=== PATIENT | female | born 1965 | race Caucasian/White ===

== ENCOUNTER 2022-02-10 06:43 | Emergency (ER) | payer OTHER, MEDICAID, SELFPAY ==
[2022-02-10 07:01] VITALS: BP 132/76; PULSE 67; RESP 16; TEMP 36.4; O2SAT 98; BMI 23.3
[2022-02-10 07:50] LABS: Hematocrit 42.3 % (36-46); Hemoglobin 14.4 g/dL (12.0-16.0); Mean Corpuscular Hemoglobin 29.4 PG (26-34); Mean Corpuscular Volume 86.4 fL (80-100); Platelet Count 287 X10^3/uL (150-400); Red Blood Cell Count 4.89 X10^6/uL (4.0-5.2); Red Cell Distribution Width 13.2 % (11.6-14.8); White Blood Cell Count 11.5 X10^3/uL (4.5-11.0)
[2022-02-10 07:52] LABS: Add Manual Diff / Slide Review YES
[2022-02-10 07:58] LABS: Acetaminophen < 10 ug/mL (10-30); Alanine Aminotransferase 34 IU/L (<35); Albumin 4.4 g/dL (3.5-5.0); Albumin Globulin Ratio 1.3 (1.0-2.8); Alkaline Phosphatase 83 U/L (38-126); Aspartate Aminotransferase 33 IU/L (14-36); BUN Creatinine Ratio 12.2 (6-22); Bilirubin Total 0.4 mg/dL (0.2-1.3); Blood Urea Nitrogen 9 mg/dL (7-17); Calcium 9.4 mg/dL (8.4-10.2); Carbon Dioxide 26 mmol/L (22-32); Chloride 105 mmol/L (98-107); Estimated Glomerular Filt Rate > 60 mL/min (>60); Ethanol (ETOH) < 10 mg/dL; Globulin 3.5 g/dL (1.7-4.1); Glucose 110 mg/dL (70-100); HEMOLYSIS < 15 (0-50); Potassium 3.7 mmol/L (3.4-5.1); Salicylate < 1.0 mg/dL (<20); Sodium 140 mmol/L (137-145); Total Protein 7.9 g/dL (6.3-8.2)
[2022-02-10 08:14] LABS: Neutrophils Absolute Manual 8740 /uL (3000-5900); RBC Morphology Norm; Total Cells Counted 100
--- NOTE | 2022-02-10 08:18 | ED.PSYCH ---
HPI - Psych <Eugenia Carlson DO - Last Filed: 02/11/22 09:23> General Chief Complaint: Psychiatric Symptoms Stated Complaint: mental health Time Seen by Provider: 02/10/22 07:11 Source: patient and family Mode of arrival: Ambulatory History of Present Illness HPI Narrative: Patient is a 56-year-old female history of bipolar brought in by her neighbors with worsening bipolar symptoms and possible hallucinations. She states that she feels like she is losing control of her life. She just lost her puppy. Sounds like she moved here from [place]. She might be hearing voices and goes in her apartment. She denies any suicidal or homicidal ideations. 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 But now neighbors are concerned that she isn't able to take care of herself. It does not sound like they know her that well but were willing to drive her to the ED for further evaluation. Patient states that she is been taking her medications her doctor and renal continues to prescribe her lithium and risperidone but she is not yet established care here in [facility]. She moved here in 2020. She denies any chest pain. She does have some shortness of breath with exertion but she does not feel like it is too bad. She denies any fever or chills. No significant abdominal pain nausea or vomiting. Patient apparently had multiple names for at least multiple pill bottles with different names. Related Data Home Medications Medication Instructions Recorded Confirmed alprazolam 0.5 mg tablet 0.5 mg PO BEDTIME PRN Insomnia 02/10/22 02/10/22 levothyroxine 25 mcg tablet 25 mcg PO DAILY 02/10/22 02/10/22 lithium carbonate 450 mg 450 mg PO BEDTIME 02/10/22 02/10/22 tablet,extended release propranolol 10 mg tablet 10 mg PO DAILY 02/10/22 02/10/22 risperidone 0.5 mg tablet 0.5 mg PO DAILY 02/10/22 02/10/22 Allergies Allergy/AdvReac Type Severity Reaction Status Date / Time No Known Drug Allergies Allergy Verified 02/10/22 21:14 Review of Systems <DO Johnnie Hill Last Filed: 02/11/22 09:23> Review of Systems Narrative: GENERAL: Denies chills, fatigue, malaise, fever, sweats, travel HEENT: Denies sinus pain, ear pain, sore throat, difficulty swallowing, neck pain RESPIRATORY: See HPI CARDIOVASCULAR: Denies chest pain, palpitations, orthopnea, edema GASTROINTESTINAL: Denies nausea, vomiting, abdominal pain, diarrhea, constipation, melena. : Denies dysuria, frequency, incontinence, hematuria, urinary retention, flank pain. MUSCULOSKELETAL: Denies weakness, joint pain, or bony pain SKIN: No rash, no erythema, no pruritus NEUROLOGIC: Denies weakness, dizziness, headache, numbness, change in speech, confusion PSYCHIATRIC: See HPI 12 point review of systems is negative except for those stated above and HPI Patient History <Eugenia Carlson DO - Last Filed: 02/11/22 09:23> Social History Smoking Status: Former smoker Smoking Status: Former smoker alcohol intake frequency: holidays/special occasions only Exam <Eugenia Carlson DO - Last Filed: 02/11/22 09:23> Initial Vital Signs Initial Vital Signs: Vital Signs Temperature 97.6 F 02/10/22 07:01 Pulse Rate 67 02/10/22 07:01 Respiratory Rate 16 02/10/22 07:01 Blood Pressure 132/76 02/10/22 07:01 Pulse Oximetry 98 02/10/22 07:01 Oxygen Delivery Method 02/10/22 07:01 GENERAL: Pleasant well-groomed 56-year-old female HEENT: Head atraumatic,EOMI, pupils reactive, face symmetric, moist mucous membranes CARDIOVASCULAR: Regular rate and rhythm without murmurs, rubs or gallops. RESPIRATORY: Breath sounds equal bilaterally, no wheezes rales or rhonchi. ABDOMEN: Soft, nontender. Normoactive bowel sounds all 4 quadrants. No guarding or rebound. EXTREMITIES: Normal range of motion, no clubbing or edema. Neurovascularly intact NEUROLOGICAL: Alert and oriented x4.Normal gait and speech. SKIN: Warm, dry, no laceration, no petechiae, no rashes or lesions. <Melani Pressley DO - Last Filed: 02/14/22 07:03> Initial Vital Signs Initial Vital Signs: Vital Signs Temperature 97.6 F 02/10/22 07:01 Pulse Rate 67 02/10/22 07:01 Respiratory Rate 16 02/10/22 07:01 Blood Pressure 132/76 02/10/22 07:01 Pulse Oximetry 98 12/18/22 07:01 Oxygen Delivery Method 02/10/22 07:01 Course <Eugenia Carlson DO - Last Filed: 02/11/22 09:23> Orders Ordered: Discontinued Medications Diphenhydramine HCl (Diphenhydramine 50 Mg/Ml Vial) 50 mg IM NOW ONE Stop: 02/11/22 05:23 Last Admin: 02/11/22 05:29 Dose: 50 mg Documented By: REUBEN Lorazepam (Lorazepam 0.5 Mg Tablet) 1 mg PO NOW ONE Stop: 02/10/22 14:51 Last Admin: 02/10/22 15:01 Dose: 1 mg Documented By: ALE Lorazepam (Lorazepam 2 Mg/Ml Inj) 1 mg IM NOW ONE Stop: 02/11/22 05:23 Last Admin: 02/11/22 05:29 Dose: 1 mg Documented By: REUBEN Olanzapine (Olanzapine Odt 10 Mg Tab) 10 mg PO NOW ONE Stop: 02/10/22 23:33 Last Admin: 02/10/22 23:37 Dose: 10 mg Documented By: STEPHEN Vital Signs Vital signs: Vital Signs - 8 hr 02/11/22 08:22 Pulse Rate 60 Blood Pressure 116/78 Pulse Oximetry 100 Oxygen Delivery Method Room Air <Melani Pressley DO - Last Filed: 02/14/22 07:03> Orders Ordered: Discontinued Medications Diphenhydramine HCl (Diphenhydramine 50 Mg/Ml Vial) 50 mg IM NOW ONE Stop: 02/11/22 05:23 Last Admin: 02/11/22 05:29 Dose: 50 mg Documented By: REUBEN Lorazepam (Lorazepam 0.5 Mg Tablet) 1 mg PO NOW ONE Stop: 02/10/22 14:51 Last Admin: 02/10/22 15:01 Dose: 1 mg Documented By: ALE Lorazepam (Lorazepam 2 Mg/Ml Inj) 1 mg IM NOW ONE Stop: 02/11/22 05:23 Last Admin: 02/11/22 05:29 Dose: 1 mg Documented By: REUBEN Olanzapine (Olanzapine Odt 10 Mg Tab) 10 mg PO NOW ONE Stop: 02/10/22 23:33 Last Admin: 02/10/22 23:37 Dose: 10 mg Documented By: STEPHEN Reevaluation(s) Reevaluation #3: Patient eloped from department. Security walked the area. Staff checked the department and she is not found. PD contacted and are looking for patient. They are reaching out to friends who brought patient. Vital Signs Vital signs: Vital Signs - 8 hr 02/11/22 08:22 Pulse Rate 60 Blood Pressure 116/78 Pulse Oximetry 100 Oxygen Delivery Method Room Air MDM - Psych <Eugenia Carlson, DO - Last Filed: 02/11/22 09:23> Lab Data Result diagrams: 02/10/22 07:30 02/10/22 07:30 Labs: Lab Results 02/10/22 02/10/22 02/10/22 Range/Units 07:28 07:30 07:30 WBC 11.5 H (4.5-11.0) X10^3/uL RBC 4.89 (4.0-5.2) X10^6/uL Hgb 14.4 (12.0-16.0) g/dL Hct 42.3 (36-46) % MCV 86.4 (80-100) fL MCH 29.4 (26-34) PG MCHC 34.0 (30-36) % RDW 13.2 (11.6-14.8) % Plt Count 287 (150-400) X10^3/uL Neut % (Auto) Not Reportable Lymph % (Auto) Not Reportable Castro % (Auto) Not Reportable Eos % (Auto) Not Reportable Baso % (Auto) Not Reportable Lymph # (Auto) Not Reportable Castro # (Auto) Not Reportable Baso # (Auto) Not Reportable Total Counted 100 Seg Neutrophils % 76.0 H (38-70) % Lymphocytes % (Manual) 13.0 L (25-45) % Monocytes % (Manual) 8.0 (2-11) % Eosinophils % (Manual) 3.0 (2-4) % Neutrophils # (Manual) 8740 H (8335-2824) /uL RBC Morphology Norm D-Dimer (<500) ng/ml Sodium 140 (137-145) mmol/L Potassium 3.7 (3.4-5.1) mmol/L Chloride 105 (98-107) mmol/L Carbon Dioxide 26 (22-32) mmol/L BUN 9 (7-17) mg/dL Creatinine 0.74 (0.52-1.04) mg/dL Estimated GFR > 60 (>60) mL/min BUN/Creatinine Ratio 12.2 (6-22) Glucose 110 H (70-100) mg/dL Calcium 9.4 (8.4-10.2) mg/dL Total Bilirubin 0.4 (0.2-1.3) mg/dL AST 33 (14-36) IU/L ALT 34 (<35) IU/L Alkaline Phosphatase 83 (38-126) U/L Total Creatine Kinase (30-135) U/L CK-MB (CK-2) CK-MB (CK-2) Rel Index Troponin I (0.01-0.034) ng/mL Total Protein 7.9 (6.3-8.2) g/dL Albumin 4.4 (3.5-5.0) g/dL Globulin 3.5 (1.7-4.1) g/dL Albumin/Globulin Ratio 1.3 (1.0-2.8) TSH (0.47-4.68) uIU/mL Urine Color Yellow Urine Appearance Clear Urine pH 7.0 (4.5-8.0) Ur Specific [place] <=1.005 (1.000-1.035) Urine Protein Negative (Negative) Urine Glucose (UA) Negative (Negative) g/dL Urine Ketones Negative (NEGATIVE) Urine Occult Blood Negative (Negative) Urine Nitrate Negative (Negative) Urine Bilirubin Negative (NEGATIVE) Urine Urobilinogen 0.2 (0.2) E.U./dL Ur Leukocyte Esterase Negative (NEGATIVE) Urine RBC 0-1/hpf (0-5/HPF) Urine WBC 0-1/hpf (0-5/HPF) Ur Squamous Epith Cells 0-1 /hpf (0-5/HPF) Urine Bacteria Occasional (0-1) (None) Ur Culture Indicated? Cult not indicated Salicylates < 1.0 (<20) mg/dL U Opiates 300ng/mL cut (Negative) Ur Oxycodone Screen (Negative) Urine Methadone Screen (Negative) Acetaminophen < 10 (10-30) ug/mL Ur Barbiturates Screen (Negative) U Tricyclic Antidepress (Negative) Ur Phencyclidine Scrn (Negative) Ur Amphetamines Screen (Negative) U Methamphetamines Scrn (Negative) Ur MDMA Scrn (Ecstasy) (Negative) U Benzodiazepines Scrn (Negative) Rugby (0.6-1.2) mmol/L Urine Cocaine Screen (Negative) U Marijuana (THC) Screen (Negative) Ethyl Alcohol < 10 ( - 10) mg/dL SARS-CoV-2 (PCR) (Negative) 02/10/22 02/10/22 02/10/22 Range/Units 07:30 07:58 08:30 WBC (4.5-11.0) X10^3/uL RBC (4.0-5.2) X10^6/uL Hgb (12.0-16.0) g/dL Hct (36-46) % MCV (80-100) fL MCH (26-34) PG MCHC (30-36) % RDW (11.6-14.8) % Plt Count (150-400) X10^3/uL Neut % (Auto) Lymph % (Auto) Castro % (Auto) Eos % (Auto) Baso % (Auto) Lymph # (Auto) Castro # (Auto) Baso # (Auto) Total Counted Seg Neutrophils % (38-70) % Lymphocytes % (Manual) (25-45) % Monocytes % (Manual) (2-11) % Eosinophils % (Manual) (2-4) % Neutrophils # (Manual) (9815-6715) /uL RBC Morphology D-Dimer (<500) ng/ml Sodium (137-145) mmol/L Potassium (3.4-5.1) mmol/L Chloride (98-107) mmol/L Carbon Dioxide (22-32) mmol/L BUN (7-17) mg/dL Creatinine (0.52-1.04) mg/dL Estimated GFR (>60) mL/min BUN/Creatinine Ratio (6-22) Glucose (70-100) mg/dL Calcium (8.4-10.2) mg/dL Total Bilirubin (0.2-1.3) mg/dL AST (14-36) IU/L ALT (<35) IU/L Alkaline Phosphatase (38-126) U/L Total Creatine Kinase 93 (30-135) U/L CK-MB (CK-2) TNP CK-MB (CK-2) Rel Index TNP Troponin I < 0.012 (0.01-0.034) ng/mL Total Protein (6.3-8.2) g/dL Albumin (3.5-5.0) g/dL Globulin (1.7-4.1) g/dL Albumin/Globulin Ratio (1.0-2.8) TSH 3.31 (0.47-4.68) uIU/mL Urine Color Urine Appearance Urine pH (4.5-8.0) Ur Specific [place] (1.000-1.035) Urine Protein (Negative) Urine Glucose (UA) (Negative) g/dL Urine Ketones (NEGATIVE) Urine Occult Blood (Negative) Urine Nitrate (Negative) Urine Bilirubin (NEGATIVE) Urine Urobilinogen (0.2) E.U./dL Ur Leukocyte Esterase (NEGATIVE) Urine RBC (0-5/HPF) Urine WBC (0-5/HPF) Ur Squamous Epith Cells (0-5/HPF) Urine Bacteria (None) Ur Culture Indicated? Salicylates (<20) mg/dL U Opiates 300ng/mL cut Negative (Negative) Ur Oxycodone Screen Negative (Negative) Urine Methadone Screen Negative (Negative) Acetaminophen (10-30) ug/mL Ur Barbiturates Screen Negative (Negative) U Tricyclic Antidepress Negative (Negative) Ur Phencyclidine Scrn Negative (Negative) Ur Amphetamines Screen Negative (Negative) U Methamphetamines Scrn Negative (Negative) Ur MDMA Scrn (Ecstasy) Negative (Negative) U Benzodiazepines Scrn Negative (Negative) Rugby (0.6-1.2) mmol/L Urine Cocaine Screen Negative (Negative) U Marijuana (THC) Screen Negative (Negative) Ethyl Alcohol ( - 10) mg/dL SARS-CoV-2 (PCR) (Negative) 02/10/22 02/10/22 02/10/22 Range/Units 08:30 08:30 13:55 WBC (4.5-11.0) X10^3/uL RBC (4.0-5.2) X10^6/uL Hgb (12.0-16.0) g/dL Hct (36-46) % MCV (80-100) fL MCH (26-34) PG MCHC (30-36) % RDW (11.6-14.8) % Plt Count (150-400) X10^3/uL Neut % (Auto) Lymph % (Auto) Castro % (Auto) Eos % (Auto) Baso % (Auto) Lymph # (Auto) Castro # (Auto) Baso # (Auto) Total Counted Seg Neutrophils % (38-70) % Lymphocytes % (Manual) (25-45) % Monocytes % (Manual) (2-11) % Eosinophils % (Manual) (2-4) % Neutrophils # (Manual) (8940-0250) /uL RBC Morphology D-Dimer 283 (<500) ng/ml Sodium (137-145) mmol/L Potassium (3.4-5.1) mmol/L Chloride (98-107) mmol/L Carbon Dioxide (22-32) mmol/L BUN (7-17) mg/dL Creatinine (0.52-1.04) mg/dL Estimated GFR (>60) mL/min BUN/Creatinine Ratio (6-22) Glucose (70-100) mg/dL Calcium (8.4-10.2) mg/dL Total Bilirubin (0.2-1.3) mg/dL AST (14-36) IU/L ALT (<35) IU/L Alkaline Phosphatase (38-126) U/L Total Creatine Kinase (30-135) U/L CK-MB (CK-2) CK-MB (CK-2) Rel Index Troponin I (0.01-0.034) ng/mL Total Protein (6.3-8.2) g/dL Albumin (3.5-5.0) g/dL Globulin (1.7-4.1) g/dL Albumin/Globulin Ratio (1.0-2.8) TSH (0.47-4.68) uIU/mL Urine Color Urine Appearance Urine pH (4.5-8.0) Ur Specific [place] (1.000-1.035) Urine Protein (Negative) Urine Glucose (UA) (Negative) g/dL Urine Ketones (NEGATIVE) Urine Occult Blood (Negative) Urine Nitrate (Negative) Urine Bilirubin (NEGATIVE) Urine Urobilinogen (0.2) E.U./dL Ur Leukocyte Esterase (NEGATIVE) Urine RBC (0-5/HPF) Urine WBC (0-5/HPF) Ur Squamous Epith Cells (0-5/HPF) Urine Bacteria (None) Ur Culture Indicated? Salicylates (<20) mg/dL U Opiates 300ng/mL cut (Negative) Ur Oxycodone Screen (Negative) Urine Methadone Screen (Negative) Acetaminophen (10-30) ug/mL Ur Barbiturates Screen (Negative) U Tricyclic Antidepress (Negative) Ur Phencyclidine Scrn (Negative) Ur Amphetamines Screen (Negative) U Methamphetamines Scrn (Negative) Ur MDMA Scrn (Ecstasy) (Negative) U Benzodiazepines Scrn (Negative) Rugby 0.8 (0.6-1.2) mmol/L Urine Cocaine Screen (Negative) U Marijuana (THC) Screen (Negative) Ethyl Alcohol ( - 10) mg/dL SARS-CoV-2 (PCR) Negative (Negative) 02/11/22 Range/Units 01:24 WBC (4.5-11.0) X10^3/uL RBC (4.0-5.2) X10^6/uL Hgb (12.0-16.0) g/dL Hct (36-46) % MCV (80-100) fL MCH (26-34) PG MCHC (30-36) % RDW (11.6-14.8) % Plt Count (150-400) X10^3/uL Neut % (Auto) Lymph % (Auto) Castro % (Auto) Eos % (Auto) Baso % (Auto) Lymph # (Auto) Castro # (Auto) Baso # (Auto) Total Counted Seg Neutrophils % (38-70) % Lymphocytes % (Manual) (25-45) % Monocytes % (Manual) (2-11) % Eosinophils % (Manual) (2-4) % Neutrophils # (Manual) (7629-9496) /uL RBC Morphology D-Dimer (<500) ng/ml Sodium (137-145) mmol/L Potassium (3.4-5.1) mmol/L Chloride (98-107) mmol/L Carbon Dioxide (22-32) mmol/L BUN (7-17) mg/dL Creatinine (0.52-1.04) mg/dL Estimated GFR (>60) mL/min BUN/Creatinine Ratio (6-22) Glucose (70-100) mg/dL Calcium (8.4-10.2) mg/dL Total Bilirubin (0.2-1.3) mg/dL AST (14-36) IU/L ALT (<35) IU/L Alkaline Phosphatase (38-126) U/L Total Creatine Kinase (30-135) U/L CK-MB (CK-2) CK-MB (CK-2) Rel Index Troponin I (0.01-0.034) ng/mL Total Protein (6.3-8.2) g/dL Albumin (3.5-5.0) g/dL Globulin (1.7-4.1) g/dL Albumin/Globulin Ratio (1.0-2.8) TSH (0.47-4.68) uIU/mL Urine Color Urine Appearance Urine pH (4.5-8.0) Ur Specific [place] (1.000-1.035) Urine Protein (Negative) Urine Glucose (UA) (Negative) g/dL Urine Ketones (NEGATIVE) Urine Occult Blood (Negative) Urine Nitrate (Negative) Urine Bilirubin (NEGATIVE) Urine Urobilinogen (0.2) E.U./dL Ur Leukocyte Esterase (NEGATIVE) Urine RBC (0-5/HPF) Urine WBC (0-5/HPF) Ur Squamous Epith Cells (0-5/HPF) Urine Bacteria (None) Ur Culture Indicated? Salicylates (<20) mg/dL U Opiates 300ng/mL cut (Negative) Ur Oxycodone Screen (Negative) Urine Methadone Screen (Negative) Acetaminophen (10-30) ug/mL Ur Barbiturates Screen (Negative) U Tricyclic Antidepress (Negative) Ur Phencyclidine Scrn (Negative) Ur Amphetamines Screen (Negative) U Methamphetamines Scrn (Negative) Ur MDMA Scrn (Ecstasy) (Negative) U Benzodiazepines Scrn (Negative) Rugby (0.6-1.2) mmol/L Urine Cocaine Screen (Negative) U Marijuana (THC) Screen (Negative) Ethyl Alcohol < 10 ( - 10) mg/dL SARS-CoV-2 (PCR) (Negative) ECG Data Interpretation: Normal sinus rhythm rate 63 NC interval 132 QRS 70 QTC 474 significant T-wave inversion noted in inferior leads 2 [address] elevations no Q-waves no priors to compare T-wave inversions also noted in V3. MDM Narrative Medical decision making narrative: Patient is found have multiple names she does not always make sense but seems well put together. She is given some Ativan she is getting a little bit anxious. She is been evaluated by social work. Necessarily considered gravely disabled but she is voluntarily willing to go to mental health facility. She is not suicidal or homicidal. Patient's EKG does have T-wave inversions and ST depressions but she is absolutely no symptoms no chest pain her troponin is negative. She denies any cardiac history. At this time likely an incidental finding. Patient signed out to Dr. Pressley awaiting placement. Social work has seen patient talking with D[facility] about possible involuntary placement. Patient has been in another room requesting to help our other patients throughout her stay. I spoke with JAMES Delgado, patient has been officially detained and has been found bed is to transfer in the morning around 0900. Patient has to be continually redirected. She has not been violent or aggressive during her staty. Patient had eloped. [place] [facility] [place] and had management to obtain money in the interim. Patient well-appearing on exam, ambulating. Will repeat UDS and ETOH. Patient has been redirectable but requiring constant redirection. She clearly does not understand her current situation to does not understand why it was not safe to leave the department without her coat without her phone while it is snowing outdoors in the middle of the night and she has no way to return home which is on not on [facility]. Patient signed out to Dr. Carlson while awaiting transport to psychatric facility. Patient signed out to me by Dr. Pressley. She left by ambulance to psych facility without any more problems <Melani Pressley, DO - Last Filed: 02/14/22 07:03> Lab Data Labs: Lab Results 02/10/22 02/10/22 02/10/22 Range/Units 07:28 07:30 07:30 WBC 11.5 H (4.5-11.0) X10^3/uL RBC 4.89 (4.0-5.2) X10^6/uL Hgb 14.4 (12.0-16.0) g/dL Hct 42.3 (36-46) % MCV 86.4 (80-100) fL MCH 29.4 (26-34) PG MCHC 34.0 (30-36) % RDW 13.2 (11.6-14.8) % Plt Count 287 (150-400) X10^3/uL Neut % (Auto) Not Reportable Lymph % (Auto) Not Reportable Castro % (Auto) Not Reportable Eos % (Auto) Not Reportable Baso % (Auto) Not Reportable Lymph # (Auto) Not Reportable Castro # (Auto) Not Reportable Baso # (Auto) Not Reportable Total Counted 100 Seg Neutrophils % 76.0 H (38-70) % Lymphocytes % (Manual) 13.0 L (25-45) % Monocytes % (Manual) 8.0 (2-11) % Eosinophils % (Manual) 3.0 (2-4) % Neutrophils # (Manual) 8740 H (6827-1978) /uL RBC Morphology Norm D-Dimer (<500) ng/ml Sodium 140 (137-145) mmol/L Potassium 3.7 (3.4-5.1) mmol/L Chloride 105 (98-107) mmol/L Carbon Dioxide 26 (22-32) mmol/L BUN 9 (7-17) mg/dL Creatinine 0.74 (0.52-1.04) mg/dL Estimated GFR > 60 (>60) mL/min BUN/Creatinine Ratio 12.2 (6-22) Glucose 110 H (70-100) mg/dL Calcium 9.4 (8.4-10.2) mg/dL Total Bilirubin 0.4 (0.2-1.3) mg/dL AST 33 (14-36) IU/L ALT 34 (<35) IU/L Alkaline Phosphatase 83 (38-126) U/L Total Creatine Kinase (30-135) U/L CK-MB (CK-2) CK-MB (CK-2) Rel Index Troponin I (0.01-0.034) ng/mL Total Protein 7.9 (6.3-8.2) g/dL Albumin 4.4 (3.5-5.0) g/dL Globulin 3.5 (1.7-4.1) g/dL Albumin/Globulin Ratio 1.3 (1.0-2.8) TSH (0.47-4.68) uIU/mL Urine Color Yellow Urine Appearance Clear Urine pH 7.0 (4.5-8.0) Ur Specific [place] <=1.005 (1.000-1.035) Urine Protein Negative (Negative) Urine Glucose (UA) Negative (Negative) g/dL Urine Ketones Negative (NEGATIVE) Urine Occult Blood Negative (Negative) Urine Nitrate Negative (Negative) Urine Bilirubin Negative (NEGATIVE) Urine Urobilinogen 0.2 (0.2) E.U./dL Ur Leukocyte Esterase Negative (NEGATIVE) Urine RBC 0-1/hpf (0-5/HPF) Urine WBC 0-1/hpf (0-5/HPF) Ur Squamous Epith Cells 0-1 /hpf (0-5/HPF) Urine Bacteria Occasional (0-1) (None) Ur Culture Indicated? Cult not indicated Salicylates < 1.0 (<20) mg/dL U Opiates 300ng/mL cut (Negative) Ur Oxycodone Screen (Negative) Urine Methadone Screen (Negative) Acetaminophen < 10 (10-30) ug/mL Ur Barbiturates Screen (Negative) U Tricyclic Antidepress (Negative) Ur Phencyclidine Scrn (Negative) Ur Amphetamines Screen (Negative) U Methamphetamines Scrn (Negative) Ur MDMA Scrn (Ecstasy) (Negative) U Benzodiazepines Scrn (Negative) Rugby (0.6-1.2) mmol/L Urine Cocaine Screen (Negative) U Marijuana (THC) Screen (Negative) Ethyl Alcohol < 10 ( - 10) mg/dL SARS-CoV-2 (PCR) (Negative) 02/10/22 02/10/22 02/10/22 Range/Units 07:30 07:58 08:30 WBC (4.5-11.0) X10^3/uL RBC (4.0-5.2) X10^6/uL Hgb (12.0-16.0) g/dL Hct (36-46) % MCV (80-100) fL MCH (26-34) PG MCHC (30-36) % RDW (11.6-14.8) % Plt Count (150-400) X10^3/uL Neut % (Auto) Lymph % (Auto) Castro % (Auto) Eos % (Auto) Baso % (Auto) Lymph # (Auto) [place] # (Auto) Baso # (Auto) Total Counted Seg Neutrophils % (38-70) % Lymphocytes % (Manual) (25-45) % Monocytes % (Manual) (2-11) % Eosinophils % (Manual) (2-4) % Neutrophils # (Manual) (3216-9999) /uL RBC Morphology D-Dimer (<500) ng/ml Sodium (137-145) mmol/L Potassium (3.4-5.1) mmol/L Chloride (98-107) mmol/L Carbon Dioxide (22-32) mmol/L BUN (7-17) mg/dL Creatinine (0.52-1.04) mg/dL Estimated GFR (>60) mL/min BUN/Creatinine Ratio (6-22) Glucose (70-100) mg/dL Calcium (8.4-10.2) mg/dL Total Bilirubin (0.2-1.3) mg/dL AST (14-36) IU/L ALT (<35) IU/L Alkaline Phosphatase (38-126) U/L Total Creatine Kinase 93 (30-135) U/L CK-MB (CK-2) TNP CK-MB (CK-2) Rel Index TNP Troponin I < 0.012 (0.01-0.034) ng/mL Total Protein (6.3-8.2) g/dL Albumin (3.5-5.0) g/dL Globulin (1.7-4.1) g/dL Albumin/Globulin Ratio (1.0-2.8) TSH 3.31 (0.47-4.68) uIU/mL Urine Color Urine Appearance Urine pH (4.5-8.0) Ur Specific [place] (1.000-1.035) Urine Protein (Negative) Urine Glucose (UA) (Negative) g/dL Urine Ketones (NEGATIVE) Urine Occult Blood (Negative) Urine Nitrate (Negative) Urine Bilirubin (NEGATIVE) Urine Urobilinogen (0.2) E.U./dL Ur Leukocyte Esterase (NEGATIVE) Urine RBC (0-5/HPF) Urine WBC (0-5/HPF) Ur Squamous Epith Cells (0-5/HPF) Urine Bacteria (None) Ur Culture Indicated? Salicylates (<20) mg/dL U Opiates 300ng/mL cut Negative (Negative) Ur Oxycodone Screen Negative (Negative) Urine Methadone Screen Negative (Negative) Acetaminophen (10-30) ug/mL Ur Barbiturates Screen Negative (Negative) U Tricyclic Antidepress Negative (Negative) Ur Phencyclidine Scrn Negative (Negative) Ur Amphetamines Screen Negative (Negative) U Methamphetamines Scrn Negative (Negative) Ur MDMA Scrn (Ecstasy) Negative (Negative) U Benzodiazepines Scrn Negative (Negative) Rugby (0.6-1.2) mmol/L Urine Cocaine Screen Negative (Negative) U Marijuana (THC) Screen Negative (Negative) Ethyl Alcohol ( - 10) mg/dL SARS-CoV-2 (PCR) (Negative) 02/10/22 02/10/22 02/10/22 Range/Units 08:30 08:30 13:55 WBC (4.5-11.0) X10^3/uL RBC (4.0-5.2) X10^6/uL Hgb (12.0-16.0) g/dL Hct (36-46) % MCV (80-100) fL MCH (26-34) PG MCHC (30-36) % RDW (11.6-14.8) % Plt Count (150-400) X10^3/uL Neut % (Auto) Lymph % (Auto) [place] % (Auto) Eos % (Auto) Baso % (Auto) Lymph # (Auto) [place] # (Auto) Baso # (Auto) Total Counted Seg Neutrophils % (38-70) % Lymphocytes % (Manual) (25-45) % Monocytes % (Manual) (2-11) % Eosinophils % (Manual) (2-4) % Neutrophils # (Manual) (7602-1900) /uL RBC Morphology D-Dimer 283 (<500) ng/ml Sodium (137-145) mmol/L Potassium (3.4-5.1) mmol/L Chloride (98-107) mmol/L Carbon Dioxide (22-32) mmol/L BUN (7-17) mg/dL Creatinine (0.52-1.04) mg/dL Estimated GFR (>60) mL/min BUN/Creatinine Ratio (6-22) Glucose (70-100) mg/dL Calcium (8.4-10.2) mg/dL Total Bilirubin (0.2-1.3) mg/dL AST (14-36) IU/L ALT (<35) IU/L Alkaline Phosphatase (38-126) U/L Total Creatine Kinase (30-135) U/L CK-MB (CK-2) CK-MB (CK-2) Rel Index Troponin I (0.01-0.034) ng/mL Total Protein (6.3-8.2) g/dL Albumin (3.5-5.0) g/dL Globulin (1.7-4.1) g/dL Albumin/Globulin Ratio (1.0-2.8) TSH (0.47-4.68) uIU/mL Urine Color Urine Appearance Urine pH (4.5-8.0) Ur Specific [place] (1.000-1.035) Urine Protein (Negative) Urine Glucose (UA) (Negative) g/dL Urine Ketones (NEGATIVE) Urine Occult Blood (Negative) Urine Nitrate (Negative) Urine Bilirubin (NEGATIVE) Urine Urobilinogen (0.2) E.U./dL Ur Leukocyte Esterase (NEGATIVE) Urine RBC (0-5/HPF) Urine WBC (0-5/HPF) Ur Squamous Epith Cells (0-5/HPF) Urine Bacteria (None) Ur Culture Indicated? Salicylates (<20) mg/dL U Opiates 300ng/mL cut (Negative) Ur Oxycodone Screen (Negative) Urine Methadone Screen (Negative) Acetaminophen (10-30) ug/mL Ur Barbiturates Screen (Negative) U Tricyclic Antidepress (Negative) Ur Phencyclidine Scrn (Negative) Ur Amphetamines Screen (Negative) U Methamphetamines Scrn (Negative) Ur MDMA Scrn (Ecstasy) (Negative) U Benzodiazepines Scrn (Negative) Rugby 0.8 (0.6-1.2) mmol/L Urine Cocaine Screen (Negative) U Marijuana (THC) Screen (Negative) Ethyl Alcohol ( - 10) mg/dL SARS-CoV-2 (PCR) Negative (Negative) 02/11/22 Range/Units 01:24 WBC (4.5-11.0) X10^3/uL RBC (4.0-5.2) X10^6/uL Hgb (12.0-16.0) g/dL Hct (36-46) % MCV (80-100) fL MCH (26-34) PG MCHC (30-36) % RDW (11.6-14.8) % Plt Count (150-400) X10^3/uL Neut % (Auto) Lymph % (Auto) Castro % (Auto) Eos % (Auto) Baso % (Auto) Lymph # (Auto) Castro # (Auto) Baso # (Auto) Total Counted Seg Neutrophils % (38-70) % Lymphocytes % (Manual) (25-45) % Monocytes % (Manual) (2-11) % Eosinophils % (Manual) (2-4) % Neutrophils # (Manual) (1110-2082) /uL RBC Morphology D-Dimer (<500) ng/ml Sodium (137-145) mmol/L Potassium (3.4-5.1) mmol/L Chloride (98-107) mmol/L Carbon Dioxide (22-32) mmol/L BUN (7-17) mg/dL Creatinine (0.52-1.04) mg/dL Estimated GFR (>60) mL/min BUN/Creatinine Ratio (6-22) Glucose (70-100) mg/dL Calcium (8.4-10.2) mg/dL Total Bilirubin (0.2-1.3) mg/dL AST (14-36) IU/L ALT (<35) IU/L Alkaline Phosphatase (38-126) U/L Total Creatine Kinase (30-135) U/L CK-MB (CK-2) CK-MB (CK-2) Rel Index Troponin I (0.01-0.034) ng/mL Total Protein (6.3-8.2) g/dL Albumin (3.5-5.0) g/dL Globulin (1.7-4.1) g/dL Albumin/Globulin Ratio (1.0-2.8) TSH (0.47-4.68) uIU/mL Urine Color Urine Appearance Urine pH (4.5-8.0) Ur Specific [place] (1.000-1.035) Urine Protein (Negative) Urine Glucose (UA) (Negative) g/dL Urine Ketones (NEGATIVE) Urine Occult Blood (Negative) Urine Nitrate (Negative) Urine Bilirubin (NEGATIVE) Urine Urobilinogen (0.2) E.U./dL Ur Leukocyte Esterase (NEGATIVE) Urine RBC (0-5/HPF) Urine WBC (0-5/HPF) Ur Squamous Epith Cells (0-5/HPF) Urine Bacteria (None) Ur Culture Indicated? Salicylates (<20) mg/dL U Opiates 300ng/mL cut (Negative) Ur Oxycodone Screen (Negative) Urine Methadone Screen (Negative) Acetaminophen (10-30) ug/mL Ur Barbiturates Screen (Negative) U Tricyclic Antidepress (Negative) Ur Phencyclidine Scrn (Negative) Ur Amphetamines Screen (Negative) U Methamphetamines Scrn (Negative) Ur MDMA Scrn (Ecstasy) (Negative) U Benzodiazepines Scrn (Negative) Rugby (0.6-1.2) mmol/L Urine Cocaine Screen (Negative) U Marijuana (THC) Screen (Negative) Ethyl Alcohol < 10 ( - 10) mg/dL SARS-CoV-2 (PCR) (Negative) MDM Narrative Medical decision making narrative: Patient is found have multiple names she does not always make sense but seems well put together. She is given some Ativan she is getting a little bit anxious. She is been evaluated by social work. Necessarily considered gravely disabled but she is voluntarily willing to go to mental health facility. She is not suicidal or homicidal. Patient's EKG does have T-wave inversions and ST depressions but she is absolutely no symptoms no chest pain her troponin is negative. She denies any cardiac history. At this time likely an incidental finding. Patient signed out to Dr. Pressley awaiting placement. Social work has seen patient talking with DCR about possible involuntary placement. Patient has been in another room requesting to help our other patients throughout her stay. I spoke with JAMES Delgado, patient has been officially detained and has been found bed is to transfer in the morning around 0900. Patient has to be continually redirected. She has not been violent or aggressive during her staty. Patient had eloped. Found by PD close to the local [facility] at least 1/2 mile away and had management to obtain money in the interim. Patient well-appearing on exam, ambulating. Will repeat UDS and ETOH. Patient has been redirectable but requiring constant redirection. She clearly does not understand her current situation to does not understand why it was not safe to leave the department without her coat without her phone while it is snowing outdoors in the middle of the night and she has no way to return home which is on not on [facility]. Patient signed out to Dr. Carlson while awaiting transport to psychatric facility. Discharge Plan Departure Patient Disposition: Xfer Psychiatric Hosp Clinical Impression: Bipolar disorder Prescriptions: No Action alprazolam 0.5 mg Tablet 0.5 mg PO BEDTIME PRN (Reason: Insomnia) levothyroxine 25 mcg Tablet 25 mcg PO DAILY lithium carbonate 450 mg Tablet Extended Release 450 mg PO BEDTIME propranolol 10 mg Tablet 10 mg PO DAILY risperidone 0.5 mg Tablet 0.5 mg PO DAILY
--- NOTE | 2022-02-10 08:45 | PC.NURSE ---
pt states she has 3 legal names. Amalia Granados Amalia Estevez ( name) neighbor, Vidal. [phone]. called and read off medication bottles with both of the above names. pt reports that she was at [facility] for 6 weeks in [place], [place] for suicidal attempt. medications were filled in [facility] and [place]
[2022-02-10 08:49] LABS: TSH w/ Reflex to FT4 3.31 uIU/mL (0.47-4.68)
[2022-02-10 08:57] LABS: Lithium 0.8 mmol/L (0.6-1.2)
[2022-02-10 08:59] LABS: D Dimer 283 ng/ml (<500)
[2022-02-10 09:00] LABS: Creatine Kinase 93 U/L (30-135)
[2022-02-10 09:13] LABS: Troponin I < 0.012 ng/mL (0.01-0.034)
--- NOTE | 2022-02-10 09:17 | PC.NURSE ---
patient's friend, Sera Will,
[2022-02-10 09:43] LABS: Appearance Urine UA CLEAR; Bilirubin Urine UA NEGATIVE (NEGATIVE); Color Urine UA YELLOW; Glucose Urine UA NEGATIVE (Negative); Ketones Urine UA NEGATIVE (NEGATIVE); Leukocyte Esterase Urine UA NEGATIVE (NEGATIVE); Nitrite Urine UA NEGATIVE (Negative); Occult Blood Urine UA NEGATIVE (Negative); Protein Urine UA NEGATIVE (Negative); Specific Gravity Urine UA <=1.005 (1.000-1.035); Urobilinogen Urine UA 0.2 E.U./dL (0.2)
[2022-02-10 09:47] LABS: UR Morphine/Opiate cutoff 300 Negative (Negative); Ur Creatinine Normal (Normal); Ur Specific Gravity Normal (Normal); Urine Amphetamines Negative (Negative); Urine Barbiturates Negative (Negative); Urine Benzodiazepines Negative (Negative); Urine Cocaine Negative (Negative); Urine MDMA Negative (Negative); Urine Methadone Negative (Negative); Urine Methamphetamines Negative (Negative); Urine Oxycodone Negative (Negative); Urine Phencyclidine Negative (Negative); Urine Tetrahydrocannabinol Negative (Negative); Urine Tricyclic Antidepressant Negative (Negative); Urine pH Normal (Normal)
[2022-02-10 10:02] LABS: Bacteria Urine Occasional (0-1); Culture Indicated Urine Cult Not Indicated; RBC Urine 0-1/HPF (0-5/HPF); Squamous Epithelial Cell Urine 0-1 /HPF (0-5/HPF); WBC Urine 0-1/HPF (0-5/HPF)
[2022-02-10 11:54] VITALS: PULSE 80; O2SAT 98
[2022-02-10 12:02] VITALS: BP 155/83; PULSE 65; O2SAT 99
--- NOTE | 2022-02-10 12:47 | CM.SWNOTE ---
SECTION SUPERVISOR - Vending Stand Supervisor Assessment SECTION SUPERVISOR - Vending Stand Supervisor Assessment Start: 02/10/22 12:35 Freq: Status: Active Protocol: Document 02/10/22 12:35 TM (Rec: 02/10/22 12:47 TM [id number]) SECTION SUPERVISOR/Vending Stand Supervisor Assessment Time Spent with Patient Start date 02/10/22 Visit Start Time 12:10 End date 02/10/22 Visit End Time 12:35 Mental Health Screening Include Onset, Duration, Intensity Presenting Problem Pt brought in by her neighbors for worsening bipolar symptoms. Pt states, I am having a little trouble making sense of things. Pt reports visual halluncinations and disorganized thought. Pt also describes feeling outside of her body watching her actions. Precipitating Event(s) Pt reports social isolation and feeling like people don't understand her. Pt reports that she doesn't understand jokes and doesn't make connections. Pt feeling sad that she is not home for [employer]. Pt reports moving to [place] from [place] in October of 2020. Pt does not have any family in the area. Current Behavioral Health Provider(s) Pt does not have current Include Facility, Provider, Ph. # providers in [place]. Pt's provider in [place] prescribes medication . Information for this provider unavailable. Psych. Hx Mental Health and Chemical Pt has diagnosis of bipolar Dependency disorder. Family Hx of Behavioral Abuse none. Psychiatric Hospitalizations (date(s)/ Pt reports that she was location) hospitalized at [facility] in [place], [place] for 6 months about 8 years ago. Psychosocial information & Support supportive neighborJan. 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 Legal Concerns Legal Matters - Outstanding Issues denies. Mental Status Orientation (Person/Place/Time) Pt A&Ox4 Stated Mood My mood is currently a 5-8. Affect (Congruent with Mood?) Broad, congruent with mood. Thought Content - Specify/Describe Pt endorsing visual Obsessions, Delusions, Hallucinations halluncinations. Pt reports that there are ghosts in her home and while they don't necessarily talk to her, she feels intuitively that they are expressing things to her. She says this is why she dropped her puppy off on her neighbor's front porch in the cold the other day. During interview, pt stood up and asked if something was going on outside in the ED. Pt reports that she thought that she saw jazmin coming to save her. Thought Processes (Glfjppr-Pbqfqcbw-Vrhj Disorganized thought. Somewhat Ygpfnffg-Oiyatkbj-Qxhkyclzat- tangential at times. Jntgyronmkvsji-Akpvddm-Uyhxkzkmkwhj- Thought Blocking) Speech (Epgaec-Yffx-Aukrgrv-Rapid-Soft- Normal. Loud-Pressured) Motor (Nznypx-Vmwanvagh-Asfv-Other) Normal. Insight (Exow-Blqs-Uxcs/Limited) Fair. Judgement (Cfwf-Umfa-Zjmy/Limited) Fair. Impulse Control (Adequate-Impaired) not tested. Memory (Idoqisvqn-Drwoxx-Svfqln, intact. Impaired-Intact) Concentration (Intact-Impaired) intact. Attention (Intact-Impaired) intact. Behavior (Appropriate-Inappropriate) appropriate. Risk Assessment Suicidal Ideation (Plan) No Homicidal Ideation (Plan) No Comment Pt reports that she is not currently suicidal but makes vague statements that indicate some suicidality. Pt reports I'm helpless and I don't have anything to able to kill myself. I worry that I am going to get something in here that is going to kill me. Intervention Intervention SW met with pt at bedside and introduced self and role. Pt reports that she does not feel safe and that she is paranoid and confused. Pt reports that she is only sleeping 2-6 hours every night. When asked if she felt safe to discharge home pt stated, There might be something or somebody in the house that I'm running away from. Pt is agreeable to voluntary psychiatric hospitalization for stabilization. Plan RA Plan SW will call local hospitals to find voluntary bed for patient. RITA Sheriff
--- NOTE | 2022-02-10 13:22 | CM.SWNOTE ---
Addendum entered by RITA Sheriff 02/10/22 19:52: RANJEET received call from DCR Danny . SW provided history to Danny and set pt up on Zoom video call. RANJEET faxed DCR over. Following call, RANJEET called Danny who believe that pt meets criteria and will try to find placement for pt. Plan: DCR will start process of finding [facility]REST bed for patient in community. RITA Sheriff Addendum entered by RITA Sheriff 02/10/22 18:15: RANJEET received call from mine boss Jen at [facility] who requested a phone call with pt to screen. Pt screened with Jen and then passed phone over to RANJEET. Jen reports that pt is reporting that she is afraid of the hospital and wants to discharge. Jen reports that pt is not good david voluntary due to these comments. RANJEET discussed with ED Provider, who met with pt and determined that pt meets criteria for grave disability. RANJEET called [facility] and made a referral for DCR Evaluation. Addendum entered by RITA Sheriff 02/10/22 15:51: RANJEET called [facility] and was informed that they have available beds but do not accept [place] [employer]. RANJEET called [facility] and confirmed that they received packet. Vinnie requested an EKG and negative covid test. RANJEET faxed requested documents. RITA Sheriff Original Note: ED SW Note SW working on voluntary inpatient psychiatric hospitalization for pt. RANJEET called [facility] and left a voicemail on their intake line. RANJEET called [facility] and they do not have any available beds at this time. RANJEET called [facility] and they do not have any available beds at this time. RANJEET called [facility] in [place] and they do not have any available beds. SW called [facility] and they do not have available beds at any of their facilities. RANJEET called [facility] and there are no available beds. RANJEET called [facility] and was instructed to call back at 3pm to check on discharges. RANJEET called [facility] and there are no available beds. RANJEET called [facility] and there was no answer. RANJEET called [facility] and they reported that they do have availability. RANJEET faxed referral to [phone]. Plan: RANJEET will follow up with Nieves on referral. RITA Sheriff
[2022-02-10 14:16] LABS: COVID19 -Nasal RAPID Negative (Negative)
[2022-02-10] MEDS: LORazepam 0.5 MG TABLET 1 MG PO (15:01)
--- NOTE | 2022-02-10 17:02 | PC.NURSE ---
Pt coming out of room periodically concerned for other patients on the unit. Pt re-directable and compliant with going back to room. Pt asked RN if this hospital does transfusions and that she thinks her energy could help other patients here Pt then asking about needing to get a bag from her friend so that she could get what she needed to track her puppy. RN continuing to re-orient pt and explain to pt the plan of care. Pt has not ate any meals this shift. Encouraging PO intake. case management social worker currently at bedside with pt
[2022-02-10 18:42] VITALS: PULSE 90; O2SAT 98
[2022-02-10 19:06] VITALS: BP 142/88; PULSE 87; O2SAT 96
--- NOTE | 2022-02-10 19:20 | PC.NURSE ---
Report received - assumed care of pt at this time - wandering around the room - awaiting placement - no needs voiced at this time
--- NOTE | 2022-02-10 19:45 | PC.NURSE ---
tie up worker at bedside - spoke with DCR
--- NOTE | 2022-02-10 20:45 | PC.NURSE ---
No changes in pt status at this time
--- NOTE | 2022-02-10 21:11 | PC.NURSE ---
[facility] called asking additional information on patient. told them no past medical history besides thyroid and bipolar.
--- NOTE | 2022-02-10 21:50 | PC.NURSE ---
XR at bedside
--- NOTE | 2022-02-10 22:00 | PC.NURSE ---
No changes at this time
--- NOTE | 2022-02-10 22:15 | PC.NURSE ---
To CT via stretcher with tech
--- NOTE | 2022-02-10 22:30 | PC.NURSE ---
Returns to the ER from radiology via stretcher with tech
--- NOTE | 2022-02-10 23:30 | PC.NURSE ---
The patient wanders around the room - unsettled - opens the door to the room and asks to leave - explained that she is going to a new center in the morning - verbalizes understanding but becomes anxious and tries to go in other patients rooms stating that they need help - explained that the patient's are all being cared for and that the patient does not need to worry about them - states that she needs to help them - told that she can send them good thoughts or pray for them - the patient states that's the dumbest thing I have heard - explained that the patient is not to go into other patient's rooms - she states well the law is dumb - asked if there is anything the patient needs at this time - she denied needs - given a puzzle - has coloring books and word searches to use at bedside
[2022-02-10] MEDS: OLANZapine ODT 10 MG TAB PO (23:37)
--- NOTE | 2022-02-10 23:50 | PC.NURSE ---
In another patient's room doing care - when came out of the room the patient was not in her room - security and police notified - search of hospital and grounds performed
--- NOTE | 2022-02-11 | PC.NURSE ---
Addendum entered by Dhara Bailey R.N. 02/11/22 01:04: [employer] was able to locate patient and bring her back to ED. Provider aware. Original Note: Patient was last visualized by this RN at 2337 when given dose of Zyprexa for restlessness. Educated patient that she needed to stay in the ED and her desires to leave were not safe. This RN went back to triage and came back and patient had eloped within 5 minutes of last visualization. Notified provider, security, coordinator and called 911 to notify them of the elopement with medication in patient's system who is also FORREST. At this time awaiting location of patient either in the hospital despite security and multiple staff searching or by Regina ROSEN.
--- NOTE | 2022-02-11 01:27 | PC.NURSE ---
lab lana blood for new etoh
--- NOTE | 2022-02-11 01:28 | PC.NURSE ---
Asked pt for new urine sample but when she cam out of the restroom the cup was empty.
[2022-02-11 01:42] LABS: Ethanol (ETOH) < 10 mg/dL
--- NOTE | 2022-02-11 02:30 | PC.NURSE ---
pt returns to the room around 0100 with PD - placed back in room 6 with a 1:1 sitter - shoes removed and placed in locked belongings storage - the patient is sleeping at this time - eyes closed - lights dimmed
--- NOTE | 2022-02-11 03:30 | PC.NURSE ---
The patient is extremely agitated - yelling and screaming out - trying to walk out - stripping the sheets off her bed - throwing things around the room - MD and LABORATORY MECHANIC HELPER to bedside to try and calm the patient - the pt is again perseverating on others in the ER needing help - states that there are people dying that need help - attempted to be reassured - difficult to redirect at this time - easily increases her anxiety
--- NOTE | 2022-02-11 04:45 | PC.NURSE ---
Becomes agitated and rushed the door attempting to get out - MD and HAND OR MACHINE PASTER and RN to the bedside - pt assisted to bed - More difficult to redirect at this time
[2022-02-11] MEDS: HALOPERIDOL 5 MG/ML VIAL (04:55)
--- NOTE | 2022-02-11 05:12 | PC.NURSE ---
pt attempted to charge the door when I attempted to close it on her she pulled it open the door open and used her head to attempt to push past me to run out of the department. upon other staff arriving to assist me she screamed and yelled incoherent phrases. we got her saenz in bed the dr order something to help calm her down.
--- NOTE | 2022-02-11 05:15 | PC.NURSE ---
Once again redirected back to bed by multiple staff as the pt rushes the door again
--- NOTE | 2022-02-11 05:16 | PC.NURSE ---
pt again attempted to run out of room and tried to push past me to leave the room . upon ovalle direction to stop and other staff arriving in room to assist pt sat back on bed and after some convincing she laid down and we placed the blankets and the comfort stuffed dog that we gave her over her.
[2022-02-11] MEDS: diphenhydrAMINE 50 MG/ML VIAL IM (05:29)
[2022-02-11] MEDS: LORazepam 2 MG/ML INJ 1 MG IM (05:29)
--- NOTE | 2022-02-11 05:32 | PC.NURSE ---
pt again attempted to to rodriguez the door in an attempt to leave. She rushed the door and attempted pull it open to get out. when I entered the room she again rushed me. it took the DR, two nurses and myself to get her back in bed. once back in bed she refused a blanket but did want her comfort stuffed dog. she was given additional medication to help calm her down.
--- NOTE | 2022-02-11 06:24 | PC.NURSE ---
pt continues to attempt to elope but fallows direction to lay down and that she cannot leave
--- NOTE | 2022-02-11 07:15 | PC.NURSE ---
Report to dayshift RN team
--- NOTE | 2022-02-11 07:48 | PC.NURSE ---
after 0745 check, pt got up and kneeled on the floor. got pt. back in bed as they were stumbling, but still safe. added 2nd side rail for pt. safety. and gave warm blanket .
--- NOTE | 2022-02-11 07:59 | PC.NURSE ---
pt. sleeping, sits up, mumbles. reassured pt. and then she laid back down.
--- NOTE | 2022-02-11 08:13 | PC.NURSE ---
pt. sat up, said they are trusting us to help them. gave pt. another blanket.
[2022-02-11 08:22] VITALS: BP 116/78; PULSE 60; O2SAT 100
--- NOTE | 2022-02-11 08:44 | PC.NURSE ---
pt. sitting up in bed. gets up every couple of minutes, mumbles, offered water. requested something warm to drink
== END 2022-02-11 09:34 ==
PROVIDERS: Emergency Medicine; Emergency Provider Emergency Medicine
DX: F31.9 Bipolar disorder, unspecified (principal); Z20.822 Contact with and (suspected) exposure to COVID-19
CPT/HCPCS: 36415; 80053; 80178; 80305; 80320; 80329; 81001; 82550; 84443; 84484; 85007; 85025; 85379; 87635; 93005; 96372; 99284; C9803; G0480; J1200; J1630; J2060